=== PATIENT | female | born 1960 | race Caucasian/White ===

== ENCOUNTER 2016-12-26 20:13 | Emergency (ER) | payer OTHER ==
[2016-12-26 20:19] VITALS: BP 108/89; PULSE 75; TEMP 98.3; BMI 21.4
[2016-12-26] MEDS ORDERED: DIPHTH,PERTUSS(ACELL),TET 0.5 ML DISP.SYRIN IM ONE (20:22)
--- NOTE | 2016-12-26 20:22 | PDOC ---
History of Present Illness - General Chief Complaint: Injury Stated Complaint: LACERATION LEFT HAND Time Seen by Provider: 12/26/16 20:18 History Source: Patient Exam Limitations: No Limitations - History of Present Illness Initial Comments: 12/26/16 21:02 56y F presenting with laceration in L hand Pt is right handed was cutting an avacado and punctured her L palm. No associated numbness/tingling /ewakness +oozing from wound. tetanus not uptodate Past History - Past Medical History Allergies/Adverse Reactions: Allergies Allergy/AdvReac Type Severity Reaction Status Date / Time No Known Allergies Allergy Verified 12/26/16 20:14 Home Medications: Ambulatory Orders Rosuvastatin Calcium [Crestor] 10 mg PO DAILY 12/26/16 Hypercholesterolemia: Yes - Immunization History Td Vaccination: No - Suicide/Smoking/Psychosocial Hx Smoking History: Never smoked Have you smoked in the past 12 months: No Information on smoking cessation initiated: No Hx Alcohol Use: No Drug/Substance Use Hx: No Substance Use Type: None Review of Systems - Review of Systems Able to Perform ROS?: Yes Comments:: 12/26/16 21:03 Constitutional - no reported Fever, Chills, skin - + L palm laceration no reported bruising, erythema, rash neurological: no reported numbness, focal weakness, tingling, hematologic: no reported anemia, easy bruising, easy bleeding *Physical Exam - Vital Signs Last Vital Signs Temp Pulse Resp BP Pulse Ox 98.3 F 75 16 108/89 96 12/26/16 20:16 12/26/16 20:16 12/26/16 20:16 12/26/16 20:16 12/26/16 20:16 - Physical Exam Comments: 12/26/16 21:03 GENERAL: The patient is awake, alert, and fully oriented, Nontoxic - in no acute distress. HEAD: Normocephalic, atraumatic. EXTREMITIES: Normal range of motion, no edema. No clubbing or cyanosis. No cords, erythema, or tenderness. NEUROLOGICAL: No facial assymetry, Normal speech, Normal movement of L thumb/ index/middle finger, sensation intact b/l PSYCH: Normal mood, normal affect. SKIN: 1.5cm laceraton on poximal L palm at base of thumb. Procedures - Consent Consent obtained: Verbal - Laceration/Wound Repair Left Hand Wound Length: to 2.5 cm Wound Explored: clean Wound's Depth, Shape: superficial Irrigated w/ Saline: Yes Anesthesia: 1% Lidocaine Amount of Anesthetic (ccs): 4 Wound Debrided: minimal Wound Repaired With: Sutures Suture Size/Type: 4:0 Number of Sutures: 1 Layer Closure: No Sterile Dressing Applied: Yes (bacitracin and bandage applied) Medical Decision Making - Medical Decision Making 12/26/16 21:11 56y F presenting with laceration while cutting av[place] lac repaired with 1x simple interrupted suture after irrigation with approx 250cc of normal saline n/v intact will dc with return precautiosn tetanus updated I discussed the physical exam findings, ancillary test results and final diagnoses with the patient. I answered all of the patient's questions. The patient was satisfied with the care received and felt comfortable with the discharge plan and treatment plan. The patient will call their primary care physician within 24 hours to arrange follow-up and will return to the Emergency Department with any new, persistent or worsening symptoms. *DC/Admit/Observation/Transfer Diagnosis at time of Disposition: Laceration of hand Qualifiers: Encounter type: initial encounter Foreign body presence: without foreign body Laterality: left Qualified Code(s): S61.412A - Laceration without foreign body of left hand, initial encounter - Discharge Dispostion Disposition: HOME Condition at time of disposition: Improved Admit: No - Patient Instructions Printed Discharge Instructions: DI for Laceration Repair -- Simple Additional Instructions: Return to the emergency department immediately with ANY new, persistent or worsening symptoms including any redness, bleeding, purulent discharge, swelling or other concerns. Keep the area clean and dry for 48 hours. Afterwards he may clean gently with soap and water. Apply bacitracin twice a day. Keep the area away from the sun for the next 9 months, please use sunscreen and wear a hat if you need to be in the sun to improve appearance of the scar. Return in 7-10 days for suture removal. You MUST call and follow up with your doctor tomorrow for further evaluation of your symptoms. Results were discussed with you. Please make sure your doctor reviews the results of your emergency evaluation. Print Language: ARMENIAN
== END 2016-12-26 21:06 | disposition home or self-care (01) ==
LOC: FER 20:13
PROC: 0HQGXZZ Repair Left Hand Skin, External Approach (ICD-10-PCS; principal; 2016-12-26)
PROC: 3E0234Z Introduction of Serum, Toxoid and Vaccine into Muscle, Percutaneous Approach (ICD-10-PCS; 2016-12-26)
DX: S61.412A Laceration without foreign body of left hand, initial encounter (principal); W26.0XXA Contact with knife, initial encounter; Y93.G1 Activity, food preparation and clean up; Y92.9 Unspecified place or not applicable; E78.00 Pure hypercholesterolemia, unspecified
CPT/HCPCS: 90715; 99281-25